=== PATIENT | male | born 1990 | race Caucasian/White ===

== ENCOUNTER 2021-09-14 10:12 | Emergency (ER) | payer OTHER ==
[2021-09-14] MEDS ORDERED: HYDROcodone/Acetaminophen 10/325 mg Tablet ONE (11:35)
== END 2021-09-14 11:43 | disposition home or self-care (01) ==
LOC: ERS 10:12
DX: S43.101A Unspecified dislocation of right acromioclavicular joint, initial encounter (principal); Z79.899 Other long term (current) drug therapy; X50.1XXA Overexertion from prolonged static or awkward postures, initial encounter